=== PATIENT | male | born 1930 | race Caucasian/White ===

== ENCOUNTER → 2016-11-15 | Outpatient (CLI) | payer MEDICARE ==
[~2016-11-15] MED LIST: ASPIRIN 81MG TA81 MG PO; GEMFIBROZIL600 MG PO; MELATONIN3 MG PO; MULTIVITAMIN1 TA1 PO
[2016-11-15 12:17] LABS: BUN 12 mg/dL (7-18); GFR (ESTIMATED) 107 ML/MIN (>60)
[2016-11-15 12:25] LABS: LYMPH # 1.4 K/mm3 (0.7-4.5); LYMPH % 33.2 % (10-50)
[2016-11-15 12:33] LABS: HEMOGLOBIN 14.4 g/dL (14.1-18.0)
== END ==
LOC: LAB 11:47
PROVIDERS: Surgery
DX: Z01.812 Encounter for preprocedural laboratory examination (principal); L72.3 Sebaceous cyst; Z79.899 Other long term (current) drug therapy

== ENCOUNTER → 2017-05-05 | Outpatient (CLI) | payer MEDICARE | LOC: LAB 10:41 | DX: Z51.81 Encounter for therapeutic drug level monitoring (principal) ==

== ENCOUNTER → 2017-06-19 | Outpatient (CLI) | payer MEDICARE ==
[2017-06-19 13:35] LABS: HEMOGLOBIN 13.2 g/dL (14.1-18.0); LYMPH # 1.1 K/mm3 (0.7-4.5)
[2017-06-19 14:37] LABS: BUN 9 mg/dL (7-18)
[2017-06-19 15:05] LABS: GFR (ESTIMATED) 107 ML/MIN (>60)
== END ==
LOC: CARL-LAB 07:08
PROVIDERS: Internal Medicine Adolescent Medicine
DX: R73.9 Hyperglycemia, unspecified (principal); R56.9 Unspecified convulsions; Z79.899 Other long term (current) drug therapy